=== PATIENT | male | born 1970 | race Hispanic/Latino ===

== ENCOUNTER 2019-12-12 07:26 | Day surgery (SDC) | payer BC ==
[2019-12-12 07:55] LABS: Absolute Lymphocytes (CBC) 2.3 K/uL (0.7-4.9); Basophils % 0.4 % (0-1.3); Hematocrit 42.6 % (39.6-49.0); Lymphocytes % 42.3 % (15.3-44.8); MPV 8.1 fL (7.6-11.3); RBC Red Blood Cell Count 4.77 M/uL (4.33-5.43)
[2019-12-12] MEDS ORDERED: NA CHLORIDE 0.9% 1,000 ML ONE (07:59)
[2019-12-12] MEDS ORDERED: CEFAZOLIN/SWI 1gm 1 GM/10 ML SYR ONE (07:59)
[2019-12-12 08:08] LABS: Potassium 3.8 mmol/L (3.5-5.1)
--- NOTE | 2019-12-12 08:46 | RAD REPORT ---
EXAM DESCRIPTION: Deion Ortiz (2 Views)12/12/2019 7:54 am CLINICAL HISTORY: Preop COMPARISON: December 2018 FINDINGS: The lungs appear clear of acute infiltrate. The heart is normal size IMPRESSION: No acute abnormalities displayed
--- NOTE | 2019-12-12 09:08 | EKG ---
Test Date: 2019-12-12 Test Time: 07:57:08 Cage/Vault Supervisor: LA MEASUREMENT RESULTS: Intervals: Rate: 52 [place]: 162 QRSD: 98 QT: 422 QTc: 392 [place]: P: 25 [place]: 162 QRS: 55 T: 46 INTERPRETIVE STATEMENTS: Sinus bradycardia Otherwise normal ECG Compared to ECG 12/19/2018 17:45:18 Sinus rhythm no longer present Electronically Signed On 12-12-19 09:07:55 PAPER CONTROL CLERK by Blake Bob
[2019-12-12] MEDS ORDERED: FENTANYL CITR 100 MCG/2 ML ONE (09:36)
[2019-12-12] MEDS ORDERED: propofoL 200 MG/20 ML VIAL IV ONE (09:36)
[2019-12-12] MEDS ORDERED: MIDAZOLAM HCL 2 MG/2 ML INJ ONE (09:36)
--- NOTE | 2019-12-12 10:10 | P.BOP ---
Preoperative diagnosis: Infected posterior neck subQ mass with abscess, diabetes , obesit Postoperative diagnosis: same Secondary procedure: Excisional biopsy of Infected post neck subQ mass with abscess drain 5x5cm Estimated blood loss: <10cc Specimen: culture , mass Findings: as above Anesthesia: General Complications: None Transferred to: Recovery Room Condition: Good
[2019-12-12] MEDS ORDERED: ONDANSETRON 4 MG/2 ML VIAL ONE (10:17)
[2019-12-12] MEDS ORDERED: CODEINE 30MG/APAP 300MG TAB ONE (11:35)
[2019-12-12 13:42] VITALS: BP 122/59; TEMP 97.5; O2SAT 100
--- NOTE | 2019-12-12 23:20 | OP ---
Date of Procedure: 12/12/2019 Surgeon: Rene Power MD Diagnoses: Infected posterior neck subcutaneous mass with abscess, diabetes, morbid obesity. Postoperative Diagnoses: Infected posterior neck subcutaneous mass with abscess, diabetes, morbid ob esity. Procedure: Excisional biopsy, infected posterior neck subcutaneous mass with abscess drainage of abo ut 5 x 5 cm. Estimated Blood Loss: Less than 10 mL. Specimen: Mass and culture of the abscess. Anesthesia: General plus local. Indications: This is a case of a 49-year-old patient, who comes to us with a posterior neck mass. Tomeka leahy has history of hidradenitis, this one, which got big and warm him fast. He has history of thi s before in the lower back, so he understands the concept, he came to us sooner still have a small wh at it looked like a cyst in that area which is infected and subcutaneous mass with abscess drainage. He was explained the benefit, alternatives, and risks of excision which include, but not limited to infection, bleeding, damage to adjacent structures, anesthesia complication, nonhealing wound, OK, an d even . He also understands this may not relieve the symptoms. He might need more than one mccarty rgical intervention. He understood, signed a consent. He understands the importance of a dressing c hanges, recent finished his antibiotics. He was explained also the importance of diabetes control an d losing weight. He signed a consent. Description Of Procedure: Patient was brought to the operating room, placed in supine position. Ane sthesia was done without complication. The patient was placed in lateral decubitus position with pro per protection. The area of concern was previously marked by me on the patient in the holding room. We made a wedge incision in that area all the way down to deep subcutaneous tissue. We noticed an a bscess formation. The mass was excised, looked like an inflammatory mass in that area and then the a bscess was drained. Loculations were explored and opened. Irrigation was done. Hemostasis obtained and the area was packed with wet-to-dry dressing. Patient tolerated the procedure well. Patient wa s sent to recovery in stable condition. CLAUDIA/MODL Voice ID: [id number] Report ID: [id number]
--- NOTE | 2019-12-12 23:20 | DS ---
Date of Discharge: 12/12/2019 Diagnoses: Infected posterior neck subcutaneous mass with abscess, diabetes, morbid obesity. Procedure: Excisional biopsy of infected posterior neck subcutaneous mass with abscess drainage. Disposition: Home. Activity: As tolerated. No heavy lifting. Followup: In my office in 1 week. Call for appointment [phone]. Keep area dry for 24 hours, then wet-to-dry dressing daily. Medications: See orders. CLADUIA/MODL Voice ID: [id number] Report ID: [id number]
== END 2019-12-12 12:07 | disposition home or self-care (01) ==
LOC: OR 07:26
PROVIDERS: ATTEND Surgery
PROC: 0JB40ZZ Excision of Right Neck Subcutaneous Tissue and Fascia, Open Approach (ICD-10-PCS; principal; 2019-12-12 09:15)
DX: R22.1 Localized swelling, mass and lump, neck (principal); L02.11 Cutaneous abscess of neck; E11.9 Type 2 diabetes mellitus without complications; G47.33 Obstructive sleep apnea (adult) (pediatric); E78.00 Pure hypercholesterolemia, unspecified; E07.9 Disorder of thyroid, unspecified; E66.01 Morbid (severe) obesity due to excess calories; Z68.41 Body mass index [BMI] 40.0-44.9, adult; Z83.3 Family history of diabetes mellitus; Z82.49 Family history of ischemic heart disease and other diseases of the circulatory system
CPT/HCPCS: 93005; 87070; 85025; 80048; 36415; 87205; 82947; 88304; 87075; 87077; 87186; 71046; 11426; J2704; J2250; J3010; J0690; J7030; J2405